=== PATIENT | female | born 1950 | race Caucasian/White ===

== ENCOUNTER → 2018-06-02 14:20 | Outpatient (CLI) | payer MEDICARE, BC, SELFPAY ==
--- NOTE | 2018-06-02 14:23 | DI.RAD.S_ITS ---
PROCEDURE: XR FOOT LT MIN 3V INDICATIONS: l foot pain TECHNIQUE: The 3 views of the foot were acquired. COMPARISON: None. FINDINGS: Bones: No fractures or dislocations. No suspicious bony lesions. Soft tissues: No tibiotalar joint effusion. Achilles tendon appears normal. IMPRESSION: Minimal degenerative osteophytic change at the interphalangeal joints, no trauma found. Mild osteoarthritis at the first MTP joint. Dictated by: Fidencio Campbell M.D. on 06/02/2018 at 14:42 Approved by: Fidencio Campbell M.D. on 06/02/2018 at 14:42
== END ==
PROVIDERS: Visit Provider Physician Assistant
DX: M19.072 Primary osteoarthritis, left ankle and foot (principal)
CPT/HCPCS: 73630

== ENCOUNTER → 2018-06-26 17:41 | Outpatient (CLI) | payer MEDICARE, BC, SELFPAY ==
--- NOTE | 2018-06-26 | DI.MRI.S_ITS ---
PROCEDURE: MRFOOT LT WO CON INDICATIONS: LEFT FOOT PAIN with attention to second and third metatarsal bones. TECHNIQUE: Noncontrast sagittal T1 spin echo and T2 fast spin echo with fat saturation, long-axis T1 spin echo and T2 fast spin echo with fat saturation, short-axis T1 spin echo and T2 fast spin echo with fat saturation through the forefoot. COMPARISON: [facility], CR, XR FOOT LT MIN 3V, 06/02/2018, 14:21. FINDINGS: Image quality: Excellent. Bones and joints: There is extensive edema throughout the second metatarsal shaft with fracture line and surrounding callus formation involving distal second metatarsal shaft. No other area of abnormal marrow signal is seen. Mild forefoot joint osteoarthritic changes are noted. The sesamoid bones appear in expected positions, without internal edema. No intraosseous lesions. Soft tissues: The visualized plantar foot muscles demonstrate normal signal and bulk. Visualized flexor and extensor tendons appear intact, without tenosynovitis. The distal insertions of the peroneus brevis and longus tendons appear intact. The principal Lisfranc ligament appears intact. No soft tissue ganglion cysts or bursal fluid collections. Sagittal images demonstrate no evidence for plantar plate tears. IMPRESSION: Findings consistent with stress fracture involving distal second metatarsal shaft. No significant displacement or angulation is seen at fracture site. Surrounding soft tissue edema and swelling is seen. No other fracture or dislocation. Forefoot tendons and ligaments are grossly intact. Dictated by: Silvino Connor M.D. on 06/27/2018 at 10:04 Approved by: Silvino Connor M.D. on 06/27/2018 at 10:16
== END ==
PROVIDERS: Visit Provider Podiatrist
DX: M79.672 Pain in left foot (principal); M84.375A Stress fracture, left foot, initial encounter for fracture
CPT/HCPCS: 73718

== ENCOUNTER → 2018-07-18 14:43 | Outpatient (CLI) | payer MEDICARE, BC, SELFPAY | PROVIDERS: Family Provider Podiatrist; PCP Internal Medicine; Visit Provider Internal Medicine | DX: M85.852 Other specified disorders of bone density and structure, left thigh (principal); M84.375D Stress fracture, left foot, subsequent encounter for fracture with routine healing; Z78.0 Asymptomatic menopausal state; Z82.62 Family history of osteoporosis; Z87.891 Personal history of nicotine dependence | CPT/HCPCS: 77080 ==

== ENCOUNTER → 2018-10-13 11:00 | Outpatient (CLI) | payer MEDICARE, BC, SELFPAY ==
--- NOTE | 2018-10-24 16:07 | PM.CARDMON.1 ---
Health Program Specialist Report Referral & Results Date Patient Seen: 10/13/18 Requesting provider: Mary Jo Sheikh Indication: Palpitations Duration of monitoring (days): 7 Diary information: There were 33 patient triggered events These events were associated with sinus rhythm, PACs PVCs and ventricular bigeminy Data: Minimum heart rate identified was 49 beats per minute at 05:59 on 10/20/2018 Maximum heart rate was 128 beats per minute at 16:45 on 10/18/2018 Less than 1% of identified beats were supraventricular ectopic in origin Approximately 1.1% of identified beats were ventricular ectopic in origin Patient had brief (less than 8 seconds) runs of ventricular bigeminy and trigeminy 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 Patient's symptoms are seemingly most likely associated with ventricular ectopic beats Clinical correlation suggested
== END ==
PROVIDERS: Family Provider Podiatrist; PCP Internal Medicine; Visit Provider Family Medicine
DX: R00.2 Palpitations (principal); R42 Dizziness and giddiness
CPT/HCPCS: 0296T; 0298T

== ENCOUNTER → 2019-08-27 10:29 | Outpatient (CLI) | payer MEDICARE, BC, SELFPAY ==
[2019-08-27 11:35] LABS: Hematocrit 44.3 % (36-46); Hemoglobin 15.4 g/dL (12.0-16.0); Mean Corpuscular HGB Conc 34.7 % (30-36); Mean Corpuscular Hemoglobin 32.5 PG (26-34); Mean Corpuscular Volume 93.6 fL (80-100); Platelet Count 217 X10^3/uL (150-400); Red Blood Cell Count 4.73 X10^6/uL (4.0-5.2); Red Cell Distribution Width 12.6 % (11.6-14.8); White Blood Cell Count 5.7 X10^3/uL (4.5-11.0)
[2019-08-27 12:01] LABS: Alanine Aminotransferase 22 IU/L (<35); Albumin 4.3 g/dL (3.5-5.0); Albumin Globulin Ratio 1.5 (1.0-2.8); Alkaline Phosphatase 102 U/L (38-126); Aspartate Aminotransferase 29 IU/L (14-36); BUN Creatinine Ratio 20.3 (6-22); Bilirubin Total 0.4 mg/dL (0.2-1.3); Blood Urea Nitrogen 14 mg/dL (7-17); Calcium 9.8 mg/dL (8.4-10.2); Carbon Dioxide 27 mmol/L (22-32); Chloride 105 mmol/L (98-107); Cholesterol 182 mg/dL (140-199); Estimated Glomerular Filt Rate > 60.0 mL/min (>60); Globulin 2.8 g/dL (1.7-4.1); Glucose 82 mg/dL (80-110); HDL Cholesterol 58 mg/dL (40-60); HEMOLYSIS < 15 (0-50); LDL Cholesterol Calculated 106 mg/dL (<100); Potassium 4.7 mmol/L (3.4-5.1); Sodium 137 mmol/L (137-145); Total Protein 7.1 g/dL (6.3-8.2); Triglycerides 89 mg/dL (35-150)
== END ==
PROVIDERS: Family Provider Podiatrist; PCP Nurse Practitioner Family; Referring Provider Nurse Practitioner Family; Visit Provider Nurse Practitioner Family
DX: Z13.6 Encounter for screening for cardiovascular disorders (principal); I10 Essential (primary) hypertension
CPT/HCPCS: 36415; 80053; 80061; 85027

== ENCOUNTER → 2020-01-04 11:29 | Outpatient (CLI) | payer MEDICARE, BC, SELFPAY ==
[2020-01-04 13:54] LABS: COVID19 -Nasal RAPID Negative (Negative)
== END ==
PROVIDERS: Family Provider Podiatrist; PCP Nurse Practitioner Family; Visit Provider Physician Assistant
DX: Z11.59 Encounter for screening for other viral diseases (principal)
CPT/HCPCS: 87635

== ENCOUNTER → 2020-01-07 10:14 | Outpatient (CLI) | payer MEDICARE, BC, SELFPAY ==
--- NOTE | 2020-01-07 | DI.NM.S_ITS ---
PROCEDURE: NM CHRIS PERF SPECT R&S PHARM Rest and pharmacological stress myocardial perfusion SPECT with gated imaging and ejection fraction RADIOPHARMACEUTICAL: 12.0 mCi Tc-99m tetrafosmin IV at rest and 26.7 mCi Tc-99m tetrafosmin IV at peak effect of pharmacological stress. [id number] was performed. INDICATIONS: Supraventricular tachycardia TECHNIQUE: Radiopharmaceutical was injected at peak stress test, and also at rest. SPECT images were obtained. SPECT myocardial perfusion images were displayed in short axis, horizontal long axis, and vertical long axis views. Gated images were reviewed using [employer] software. COMPARISON: None. CARDIAC STRESS: A pharmacologic stress test was performed under the supervision of an attending staff, using an infusion of lexiscan 0.4mg IV X1. Hemodynamic data: There is normal blood pressure and heart rate response to pharmacologic stress. Symptoms: The patient denied anginal chest pain. Aminophylline: 100mg IV X1 given. EKG: Resting ECG shows sinus rhythm with LBBB. ECG non-diagnostic with lexiscan. Rare PVCs. FINDINGS: Raw data: There is good myocardial uptake of radiotracer. No significant motion artifacts. Rnbh-gv-mpqqk ratio is 0.36 (normal is less than 0.38 for tetrafosmin tracer). Left ventricle function: Gated images demonstrate normal left ventricular wall thickening. No segmental wall motion abnormalities. No transient ischemic dilation; TID is 0.92 (normal less than 1.3). Left ventricle resting end diastolic volume is 96 mL. Left ventricle stress ejection fraction is 75%; normal range is above 45%. Myocardial perfusion: There is normal distribution of activity in the right and left ventricular myocardium. No fixed or reversible perfusion defects. IMPRESSION: Low risk, normal pharmaceutical nuclear stress test. 1) No perfusion evidence of ischemia or infarction. 2) Normal left ventricular size, wall motion, and systolic function (EF post stress 75%). 3) ECG non-diagnostic due to baseline LBBB. 4) No angina during the study. 5) No prior nuclear stress test available for comparison. Dictated by: Cullen Blackwell MD on 01/07/2020 at 17:11 Approved by: Cullen Blackwell MD on 01/07/2020 at 17:14
== END ==
PROVIDERS: Family Provider Podiatrist; PCP Nurse Practitioner Family; Referring Provider Nurse Practitioner; Visit Provider Nurse Practitioner
DX: I47.1 Supraventricular tachycardia (principal); I44.7 Left bundle-branch block, unspecified; I10 Essential (primary) hypertension; R00.2 Palpitations
CPT/HCPCS: 78452; 93017; A9502; J2785

== ENCOUNTER → 2020-01-29 10:53 | Outpatient (CLI) | payer MEDICARE, BC, SELFPAY ==
[2020-01-29 12:50] LABS: BUN Creatinine Ratio 17.8 (6-22); Blood Urea Nitrogen 13 mg/dL (7-17); Calcium 9.5 mg/dL (8.4-10.2); Carbon Dioxide 31 mmol/L (22-32); Chloride 105 mmol/L (98-107); Estimated Glomerular Filt Rate > 60.0 mL/min (>60); Glucose 85 mg/dL (80-110); HEMOLYSIS < 15 (0-50); Magnesium 2.3 mg/dL (1.6-2.3); Potassium 4.3 mmol/L (3.4-5.1); Sodium 137 mmol/L (137-145)
[2020-01-29 13:17] LABS: Thyroid Stimulating Hormone 2.02 uIU/mL (0.47-4.68)
[2020-02-01 14:08] LABS: Fecal Immunochemical Test Negative (Negative)
[2020-02-01 23:07] LABS: Metanephrine,Plasma 30.1 pg/mL (0.0-88.0)
[2020-02-05 13:16] LABS: Renin Activity 0.236 ng/mL/hr (0.167-5.380)
== END ==
PROVIDERS: Family Provider Podiatrist; PCP Nurse Practitioner Family; Referring Provider Nurse Practitioner; Visit Provider Nurse Practitioner
DX: I10 Essential (primary) hypertension (principal); Z12.11 Encounter for screening for malignant neoplasm of colon
CPT/HCPCS: 36415; 80048; 82088; 82274; 83735; 83835; 84244; 84443

== ENCOUNTER 2020-07-12 08:27 | Day surgery (SDC) | payer MEDICARE, BC, SELFPAY ==
[2020-07-12] MEDS: PROPARACAINE 0.5% OPHTH SOL 2 DROPS EYE-OP (09:48)
[2020-07-12] MEDS: CATARACT EYE COMPOUND (10 DROPS/SYRINGE) 3 DROPS EYE-OP (09:48)
[2020-07-12 09:53] VITALS: BP 160/91; PULSE 67; RESP 16; TEMP 36.2; O2SAT 100; BMI 28.8
[2020-07-12 09:59] LABS: COVID19 -Nasal RAPID Negative (Negative)
--- NOTE | 2020-07-12 10:24 | P.OP_ITS ---
Operative Date/Time/Diagnoses Pre-op diagnosis: Nuclear cataract right eye Procedure & Clinicians Procedure: Cataract Surgery Same procedure as scheduled: Yes Surgeon: Master Cage Anesthesia Type: MAC +/- and Sedation Operative Notes Procedure in detail: Patient brought to the operating suite. Tetracaine drops placed in the right eye. Marking instrument was used to brittney the vertical and horizontal meridians. Patient was prepped and draped in sterile manner. Wire lid speculum was placed in the eye. The marking instrument was used to brittney the 30 degree meridian. Betadine drops were placed on the eye. This was irrigated. Lidocaine jelly was placed on the eye. A paracentesis port was created with a side-port blade. 0.1 mL 1% preservative free lidocaine was injected into the anterior chamber. The anterior chamber was deepened with viscoelastic. 2.6 mm keratome was used to create a temporal clear corneal incision. Cystotome and Utrata forceps were used to create continuous tear capsulorrhexis. Balanced salt solution was used to hydro dissect the nucleus. The phacoemulsification handpiece was inserted and the nucleus was removed using the stop and chop technique. The irrigation aspiration handpiece was inserted and the remaining cortex was removed. Anterior chamber was deepened with viscoelastic. An Terry [id number] intraocular lens with a power of 23.0 was injected into the capsular bag. Irrigation aspiration handpiece was inserted and the remaining viscoelastic was removed. The lens was rotated to the 30 degree meridian. Incision was hydrated with balanced salt solution and found to be leak free with pressure with Weck- Ginny sponges. 0.1 mL Vigamox injected anterior chamber. 0.3 mL Kenalog 10 mg was injected subconjunctivally. Lid speculum was removed. The patient left the operating room in excellent condition. Complications: none Post-operative Condition: stable Disposition: same day surgery
--- NOTE | 2020-07-12 10:24 | PM.PREOP ---
Pre-operative Note Interval Note History & Physical reviewed/Exam performed by Physician: Yes Changes to H&P: No
[2020-07-12] MEDS: CHONDROIDTIN/SOD HYALURONATE 1.05 ML SYRINGE INTRAOCULA (10:37)
[2020-07-12] MEDS: MOXIFLOXACIN INJ 4 MG/0.8 ML VIAL 0.5 MG EYE-OP (10:37)
[2020-07-12] MEDS: LIDOCAINE 2% (GLYDO) 6 ML GEL TOP (10:37)
[2020-07-12] MEDS: TRIAMCINOLONE 50 MG/5 ML VIAL INJ (10:38)
[2020-07-12] MEDS: TETRACAINE 0.5% OPHTH DROPS 4 ML 2 DROPS EYE-OP (10:38)
[2020-07-12] MEDS: PHENYLEPHRINE/LIDOCAINE VIAL (OR) 0.2 ML EYE-OP (10:38)
[2020-07-12] MEDS: BALANCED SALT IRRIG SOLN NO.2 500 ML, EPINEPHrine 1 MG IRR (10:38)
[2020-07-12 11:07] VITALS: BP 144/86; PULSE 40; RESP 12; TEMP 35.8; O2SAT 97
== END 2020-07-12 11:14 | disposition home or self-care (01) ==
LOC: OR 08:36
PROVIDERS: Family Provider Podiatrist; PCP Nurse Practitioner Family; Referring Provider Ophthalmology; Visit Provider Ophthalmology
PROC: (CPT 66984; principal; 2020-07-12 10:45)
DX: H25.11 Age-related nuclear cataract, right eye (principal); F41.9 Anxiety disorder, unspecified; Z20.822 Contact with and (suspected) exposure to COVID-19
CPT/HCPCS: 66984; 87635; J0171; J2250; J3301; V2787

== ENCOUNTER 2020-09-06 15:41 | Emergency (ER) | payer MEDICARE, BC, SELFPAY ==
[2020-09-06 15:44] VITALS: BP 192/105; PULSE 67; RESP 18; TEMP 36.4; O2SAT 100; BMI 28.3
[2020-09-06 15:47] VITALS: BP 179/97
--- NOTE | 2020-09-06 15:51 | DI.CT.S_ITS ---
PROCEDURE: CT HEAD/BRAIN WO CON INDICATIONS: GLF, head injury TECHNIQUE: Noncontrast 4.5 mm thick angled axial sections acquired from the foramen magnum to the vertex, with coronal and sagittal reformats. For radiation dose reduction, the following was used: automated exposure control, adjustment of mA and/or kV according to patient size. COMPARISON: None. FINDINGS: Image quality: Excellent. CSF spaces: Basal cisterns are patent. No extra-axial fluid collections. Ventricles are normal in size and shape. Brain: No midline shift. No intracranial masses or hemorrhage. Chaves-white matter interface is normal. Skull and face: Calvarium and visualized facial bones are intact, without suspicious lesions. Right frontal scalp hematoma. Sinuses: Visualized sinuses and mastoids are clear. IMPRESSION: No acute intracranial abnormality. Right frontal scalp hematoma. Dictated by: Mika Dickens M.D. on 09/06/2020 at 16:07 Approved by: Mika Dickens M.D. on 09/06/2020 at 16:08
--- NOTE | 2020-09-06 17:48 | ED.HEATRA ---
HPI - Head Injury General Chief complaint: Head Injury Stated complaint: fell, hit head/face Time Seen by Provider: 09/06/20 17:44 Source: patient and family Mode of arrival: Ambulatory Limitations: no limitations History of Present Illness HPI Narrative: This is a 70-year-old female who comes to the emergency department with complaint of fall. Patient was walking when she tripped on the edge of the sidewalk. She fell and hit the right side of her face. Patient has a large hematoma. She has some abrasions. She states she did not get knocked out. She denies any headache currently but did have one initially. She denies loss of consciousness, stunned or altered mental status. Fall was witnessed by an individual who was helping her carry her groceries out from the local store. Patient does have some abrasions on her face. She is unsure of her tetanus status. She denies vision changes, no neck or back pain. No nausea, no vomiting, no other GI or urinary symptoms, no numbness tingling or weakness in her extremities. No chest pain or shortness of breath. Patient denies any other injuries besides some mild discomfort in her right buttock. Patient states she was able to ambulate afterwards. She states she does take a diuretic, chlorthalidone. Patient denies any other medical issues. She denies any anticoagulants. Related Data Home Medications Medication Instructions Recorded Confirmed ascorbic acid (vitamin C) 500 mg 500 mg PO DAILY #0 03/12/17 07/12/20 tablet multivitamin (Multiple Vitamins) 1 tab PO DAILY #0 03/12/17 07/12/20 vitamin E 100 unit capsule 100 unit PO DAILY #0 03/12/17 07/12/20 Deep Sleep 1 tab PO BEDTIME 05/05/19 calcium/magnesium 1 tab PO DAILY 05/05/19 07/12/20 cholecalciferol (vitamin D3) 50 2,000 unit PO DAILY 05/05/19 07/12/20 mcg (2,000 unit) tablet estradiol cream 1 applic TOPICAL DAILY 05/05/19 07/12/20 melatonin 3 mg capsule 3 mg PO BEDTIME PRN 05/05/19 07/12/20 progesterone cream 1 applic TOPICAL DAILY 05/05/19 07/12/20 chlorthalidone 25 mg tablet 12.5 mg PO DAILY 05/18/21 05/18/21 potassium chloride 10 mEq 10 meq PO DAILY 07/12/20 07/12/20 tablet,extended release Previous Rx's Medication Instructions Recorded [medical marijuana] PRN PRN #0 03/19/17 Allergies Allergy/AdvReac Type Severity Reaction Status Date / Time adhesive [ADHESIVE] Allergy Unknown Verified 09/06/20 15:44 morphine [MORPHINE] Allergy Unknown Verified 09/06/20 15:44 Review of Systems Review of Systems ROS Unobtainable: All systems reviewed & are unremarkable except as noted in HPI and below Patient History Medical History Fractures (~2015) Hot flashes Surgical History Anesthesia Broken ankle (~08/2002) Family History Father Cancer Mother Cancer Congestive heart failure Grandfather Stroke Grandmother Bleeding ulcer Social History household members: spouse Smoking Status: Former smoker Tobacco: How many years used: 30 second hand exposure: No alcohol intake: current substance use type: marijuana Smoking Status: Former smoker alcohol intake frequency: holidays/special occasions only Substance Use Type: marijuana Exam Narrative Exam Narrative: GEN: Patient appears in mild distress. HEAD: Patient has large hematoma over the right brow, he has some abrasion over the right forehead, right cheek, no raccoon/López sign. NECK: Nontender, painless range of motion, trachea midline Negative for Nexus criteria, there is no line tenderness, distracting injury, altered mental status, neuro deficit, recent EtOH. EYES: PERRLA, EOMI ENT: External inspection normal, trachea is midline, TM's are normal no hemotypanum, Nares are clear, no septal hematoma, no dental or oral injury, airway is normal and with normal occlusion, No bony tenderness RESP: Chest is nontender and has symmetric movement, no ecchymosis, breath sounds are normal no crackles, wheezes or rales CVS: Heart sounds are normal, no murmur noted, No JVD. ABG/GI: Nontender, soft, normal bowel sounds, no distention, no organomegaly. NEURO: Oriented AOx3, neuro is grossly intact, sensation and motor is normal all 4 extremities moving, cranial nerves II through XII are intact, GCS is 15 PSYCH: Normal mood and affect SKIN: See above, warm and dry, no crepitus and without decubitus BACK: No CVA tenderness, no vertebral tenderness, no step-off's, no crepitus EXT: Atraumatic, hips are nontender, no pedal edema, normal color and temperature, normal range of motion of extremities with normal tendon exam, 2+ pulses in all four extremities Initial Vital Signs Initial Vital Signs: Vital Signs Temperature 97.6 F 09/06/20 15:44 Pulse Rate 67 09/06/20 15:44 Respiratory Rate 18 09/06/20 15:44 Blood Pressure 192/105 H 09/06/20 15:44 Pulse Oximetry 100 09/06/20 15:44 Scores GCS Jadon coma scale eye opening: Spontaneous [place] coma scale verbal response: Orientated Jadon coma scale motor response: Obey commands Jadon coma scale total score: 15 Course Orders Ordered: ED Orders 09/06/20 15:51 CT head/brain wo con Stat Discontinued Medications Diphtheria/Tetanus/Acell Pertussis (Tet,Diph,Pertuss(Acell),Vac/Pf 0.5 Ml Syringe) 0.5 ml IM .ONCE ONE Stop: 09/06/20 18:06 Last Admin: 09/06/20 18:14 Dose: 0.5 ml Documented by: BUCK Vital Signs Vital signs: Vital Signs - 8 hr 09/06/20 15:44 09/06/20 15:47 09/06/20 18:32 Temperature 97.6 F Pulse Rate 67 78 Respiratory Rate 18 12 Blood Pressure 192/105 H 179/97 H 170/88 H Pulse Oximetry 100 100 MDM - Head Injury Imaging Data CT scan - head: Radiologist's Impression: [address] [id number] Scan ReportSigned Patient: Trisha Flores GMR#: [id number]: [id number]:[id number]/Sex: 70 / FDate of Service: 09/06/20Loc: EDAccession Number: [id number] Procedure: CT head/brain wo con Ordering Provider: Mank,Alicia C D.O. PROCEDURE: CT HEAD/BRAIN WO CON INDICATIONS: GLF, head injury TECHNIQUE: Noncontrast 4.5 mm thick angled axial sections acquired from the foramen magnum to the vertex, with coronal and sagittal reformats. For radiation dose reduction, the following was used: automated exposure control, adjustment of mA and/or kV according to patient size. COMPARISON: None. FINDINGS: Image quality: Excellent. CSF spaces: Basal cisterns are patent. No extra-axial fluid collections. Ventricles are normal in size and shape. Brain: No midline shift. No intracranial masses or hemorrhage. Chaves-white matter interface is normal. Skull and face: Calvarium and visualized facial bones are intact, without suspicious lesions. Right frontal scalp hematoma. Sinuses: Visualized sinuses and mastoids are clear. IMPRESSION: No acute intracranial abnormality. Right frontal scalp hematoma. Dictated by: Mika Dickens M.D. on 09/06/2020 at 16:07 Approved by: Mika Dickens M.D. on 09/06/2020 at 16:08 [facility] Narrative Medical decision making narrative: This is a 70-year-old female comes emergency department with ground level fall, witnessed mechanical fall with no loss of consciousness the patient has pretty significant hematoma over the right forehead. Patient have a mild headache. Head CT was ordered based on age. She is not anticoagulated. Head CT was negative, patient's GCS is 3. Cervical collar is clinically cleared. Tetanus was updated as patient was unsure of her last. Discharge Plan Departure Patient Disposition: Home Clinical Impression: Contusion of face, Abrasion of face, Head injury, Fall Instructions: DI for Closed Head Injury, DI for Abrasion Activity Restrictions/Additional Instructions: Follow-up with your physician for recheck in the next if you are not continuing to have improvement. Your tetanus has been updated. Wound Care: Keep wound(s) clean and dry. Wash daily with soap and water only. Do not use over the counter products (alcohol or peroxide)on the wounds unless instructed by a physician. You can use triple antibiotic ointment to affected area until healed. After healed I would recommend using sunscreen and protective clothing to prevent pigment changes. If wound condition worsens (increased/expanding redness, developing fluid blisters, or worsening pain), either contact your doctor for an urgent re-assessment , or return to the Emergency Department. Return to the Emergency Department for any new or worsening symptoms. Return if fever greater than 100.4 Fahrenheit, increased swelling, increasing pain or worsening symptoms such as increased discharge or spreading redness. Severe headaches, lightheadedness or passing out, new numbness, tingling or weakness, severe neck pain, persistent vomiting or other new or concerning symptoms. Prescriptions: No Action multivitamin [Multiple Vitamins] 1 EACH tablet 1 tab PO DAILY Qty: 0 RF: 0 vitamin E 100 UNIT capsule 100 unit PO DAILY Qty: 0 RF: 0 ascorbic acid (vitamin C) 500 MG tablet 500 mg PO DAILY Qty: 0 RF: 0 [medical marijuana] PRN PRNQty: 0 RF: 0 melatonin 3 mg capsule 3 mg PO BEDTIME PRN (Reason: Sleep) RF: 0 calcium/magnesium 1 tab PO DAILY RF: 0 cholecalciferol (vitamin D3) 50 mcg (2,000 unit) tablet 2,000 unit PO DAILY RF: 0 Deep Sleep 1 tab PO BEDTIME RF: 0 progesterone cream 1 applic topical DAILY RF: 0 estradiol cream 1 applic topical DAILY RF: 0 potassium chloride 10 mEq tablet extended release 10 meq PO DAILY RF: 0 chlorthalidone 25 mg tablet 12.5 mg PO DAILY RF: 0 Referrals: Marsha Yousif ARNP [Primary Care Provider] -
[2020-09-06] MEDS: TET,DIPH,PERTUSS(ACELL),VAC/PF 0.5 ML SYRINGE IM (18:14)
[2020-09-06 18:32] VITALS: BP 170/88; PULSE 78; RESP 12; O2SAT 100
== END 2020-09-06 18:36 | disposition home or self-care (01) ==
PROVIDERS: Emergency Provider Emergency Medicine; Family Provider Podiatrist; PCP Nurse Practitioner Family
DX: S00.83XA Contusion of other part of head, initial encounter (principal); S00.81XA Abrasion of other part of head, initial encounter; W19.XXXA Unspecified fall, initial encounter; Z23 Encounter for immunization
CPT/HCPCS: 70450; 90471; 99284; 90715

== ENCOUNTER → 2020-10-05 13:24 | Outpatient (CLI) | payer MEDICARE, BC, SELFPAY ==
[2020-10-05 15:00] LABS: COVID19 -Nasal RAPID Negative (Negative)
== END ==
PROVIDERS: Family Provider Podiatrist; PCP Nurse Practitioner Family; Referring Provider Student in an Organized Health Care Education/Training Program; Visit Provider Student in an Organized Health Care Education/Training Program
DX: R50.9 Fever, unspecified (principal); Z20.822 Contact with and (suspected) exposure to COVID-19
CPT/HCPCS: 87635

== ENCOUNTER → 2021-03-06 13:30 | Outpatient (CLI) | payer MEDICARE, BC, SELFPAY ==
[2021-03-06 14:45] LABS: Blood Urea Nitrogen 20 mg/dL (7-17); Calcium 9.9 mg/dL (8.4-10.2); Carbon Dioxide 30 mmol/L (22-32); Chloride 101 mmol/L (98-107); Estimated Glomerular Filt Rate > 60.0 mL/min (>60); Glucose 91 mg/dL (80-110); HEMOLYSIS < 15 (0-50); Potassium 4.6 mmol/L (3.4-5.1); Sodium 134 mmol/L (137-145)
== END ==
PROVIDERS: Family Provider Podiatrist; PCP Nurse Practitioner Family; Referring Provider Internal Medicine Cardiovascular Disease; Visit Provider Internal Medicine Cardiovascular Disease
DX: R00.2 Palpitations (principal); I10 Essential (primary) hypertension
CPT/HCPCS: 36415; 80048

== ENCOUNTER → 2021-06-05 14:39 | Outpatient (CLI) | payer MEDICARE, BC, SELFPAY ==
[2021-06-05 15:39] LABS: BUN Creatinine Ratio 17.3 (6-22); Blood Urea Nitrogen 13 mg/dL (7-17); Calcium 9.4 mg/dL (8.4-10.2); Carbon Dioxide 30 mmol/L (22-32); Chloride 98 mmol/L (98-107); Estimated Glomerular Filt Rate > 60.0 mL/min (>60); Glucose 93 mg/dL (80-110); HEMOLYSIS < 15 (0-50); Sodium 135 mmol/L (137-145)
[2021-06-06 13:35] LABS: Osmolality, Serum 278 mOsmol/kg (280-301)
== END ==
PROVIDERS: Family Provider Podiatrist; PCP Nurse Practitioner Family; Referring Provider Internal Medicine Cardiovascular Disease; Visit Provider Internal Medicine Cardiovascular Disease
DX: I10 Essential (primary) hypertension (principal); R00.2 Palpitations
CPT/HCPCS: 36415; 80048; 83930

== ENCOUNTER → 2021-07-05 14:35 | Outpatient (CLI) | payer MEDICARE, BC, SELFPAY ==
[2021-07-05 15:54] LABS: BUN Creatinine Ratio 26.5 (6-22); Blood Urea Nitrogen 22 mg/dL (7-17); Calcium 9.6 mg/dL (8.4-10.2); Carbon Dioxide 28 mmol/L (22-32); Chloride 103 mmol/L (98-107); Estimated Glomerular Filt Rate > 60 mL/min (>60); Glucose 92 mg/dL (80-110); HEMOLYSIS < 15 (0-50); Potassium 3.9 mmol/L (3.4-5.1); Sodium 139 mmol/L (137-145)
[2021-07-06 15:36] LABS: Osmolality, Serum 290 mOsmol/kg (280-301)
== END ==
PROVIDERS: Family Provider Podiatrist; PCP Nurse Practitioner Family; Referring Provider Internal Medicine Cardiovascular Disease; Visit Provider Internal Medicine Cardiovascular Disease
DX: E87.1 Hypo-osmolality and hyponatremia (principal)
CPT/HCPCS: 36415; 80048; 83930

== ENCOUNTER → 2021-12-22 09:08 | Outpatient (CLI) | payer MEDICARE, BC, SELFPAY ==
[2021-12-22 10:39] LABS: Alanine Aminotransferase 23 IU/L (<35); Albumin Globulin Ratio 1.4 (1.0-2.8); Alkaline Phosphatase 84 U/L (38-126); Aspartate Aminotransferase 23 IU/L (14-36); BUN Creatinine Ratio 17.9 (6-22); Bilirubin Total 0.4 mg/dL (0.2-1.3); Blood Urea Nitrogen 14 mg/dL (7-17); Calcium 9.5 mg/dL (8.4-10.2); Carbon Dioxide 28 mmol/L (22-32); Chloride 100 mmol/L (98-107); Cholesterol 200 mg/dL (140-199); Estimated Glomerular Filt Rate > 60 mL/min (>60); Globulin 2.9 g/dL (1.7-4.1); Glucose 99 mg/dL (80-110); HDL Cholesterol 65 mg/dL (40-60); HEMOLYSIS < 15 (0-50); LDL Cholesterol Calculated 122 mg/dL (<100); Potassium 3.9 mmol/L (3.4-5.1); Sodium 134 mmol/L (137-145); Total Protein 6.9 g/dL (6.3-8.2); Triglycerides 65 mg/dL (35-150)
== END ==
PROVIDERS: Family Provider Podiatrist; PCP Registered Nurse Diabetes Educator; Referring Provider Internal Medicine Cardiovascular Disease; Visit Provider Internal Medicine Cardiovascular Disease
DX: I10 Essential (primary) hypertension (principal)
CPT/HCPCS: 36415; 80053; 80061

== ENCOUNTER → 2022-04-16 09:43 | Outpatient (CLI) | payer MEDICARE, BC, SELFPAY | PROVIDERS: Family Provider Registered Nurse Diabetes Educator; PCP Registered Nurse Diabetes Educator; Referring Provider Registered Nurse Diabetes Educator; Visit Provider Registered Nurse Diabetes Educator | DX: M85.851 Other specified disorders of bone density and structure, right thigh (principal); Z13.820 Encounter for screening for osteoporosis; Z78.0 Asymptomatic menopausal state | CPT/HCPCS: 77080 ==

== ENCOUNTER → 2022-04-27 11:40 | Outpatient (CLI) | payer MEDICARE, BC, SELFPAY ==
[2022-04-27 13:03] LABS: Vitamin D 25 Hydroxy (D3) 48.9 ng/mL (30.0-100.0)
== END ==
PROVIDERS: Family Provider Registered Nurse Diabetes Educator; PCP Registered Nurse Diabetes Educator; Referring Provider Registered Nurse Diabetes Educator; Visit Provider Registered Nurse Diabetes Educator
DX: M85.80 Other specified disorders of bone density and structure, unspecified site (principal)
CPT/HCPCS: 36415; 82306

== ENCOUNTER 2022-05-28 14:30 | Outpatient (RCR) | payer MEDICARE, BC, SELFPAY ==
--- NOTE | 2022-05-16 16:08 | PT.OPPOC ---
Physical, Occupational & Speech Therapy At [facility] Current Diagnoses Other symptoms and signs involving the nervous system (05/16/22) Weakness (05/16/22) History of falling (05/16/22) Visit Care Team Role Provider Type TOBI Haywood Attending Provider [employer]er Blasting Family Provider Primary Care Provider Referring Provider Specialty: Medical Address: [address] [place] [address], [facility] Email: [email or web address] Plan Of Care PT-OP-T Assessment and Plan Start: 05/16/22 13:00 Freq: Status: Active Protocol: Document 05/16/22 13:01 ABRAHAM (Rec: 05/16/22 13:46 SAK [id number]) Physical Therapy Assessment Rehab Potential Rehabilitation Potential Good Evaluation Complexity Number of Personal Factors/Comorbidities 1-2 Number of Body Systems Impaired 1-2 Clinical Presentation at Evaluation Evolving Impairments Impairments Balance Goals Two Impairment weakness Impairment decreased LE strength Short Term Goal (STG) Patient to be instructed in individualized HEP for purposes of LE strengthening STG Duration 06/16/22 Skilled Nursing Goal (LTG) Patient to be independent with HEP and demonstrate LE strength 5/5 astrid to allow her to return to all prior activities safely LTG Duration 07/17/21 One Impairment balance dysfunction Impairment Narayan Balance score 46/56 Short Term Goal (STG) Improve Narayan balance score to 50/56 as measure of improved balance and safety STG Duration 06/16/22 Field Service Supervisor Goal (LTG) Improve Narayan balance score to at least 54/56 as mesure of improved balance and safety LTG Duration 07/16/22 Assessment Summary Assessment Patient presents to PT with function-limiting balance dysfunction of unknown origin, has had several falls. Balance impairment has led to decrease in activity level outside the house. Evaluation reveals LE weakness, difficulty with balance testing, lack of HEP to address balance. Feel she would benefit from PT to work on LE strengthening, balance retraining and help her return to prior high level of functional activity with decreased risk of falls. Plan of care was discussed with patient and she is in agreement. Physical Therapy Plan Frequency and Duration Frequency of Treatment 2x/Week Duration of treatment (weeks) 6 Plan of Care Start Date 05/16/22 Plan of Care End Date 07/16/22 Therapeutic Interventions Therapeutic Interventions Balance Training,Gait Training ,Home Exercise Program,Self- Care/Home Management, Therapeutic Activities, Therapeutic Exercises Next Visit Focus/Plan Next Note Type Treatment Note Next Visit Plan REview HEP, progress ther ex for balance retraining, gait training. Update HEP as indicated. Plan of Care Dates Plan of Care Start Date 05/16/22 Plan of Care End Date 07/16/22 Electronically Signed by: Fiordaliza Merritt, PT 05/21/22 0576 If you are in agreement with this Plan of Care, please return a signed and dated copy. I have reviewed this Plan of Care and certify that the skilled therapy services above are required to meet the patient?s needs. Physician Signature Date Printed Name and Credentials Clinical Instructor Signature Printed Name and Credentials
--- NOTE | 2022-05-16 16:08 | PT.OIE ---
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 Family Provider Primary Care Provider Referring Provider Specialty: Medical Address: [address] [place] [address] Email: [email or web address] Physical Therapy Initial Evaluation PT-OP-A Visit Information Start: 05/16/22 13:00 Freq: Status: Active Protocol: Document 05/16/22 13:01 [facility] (Rec: 05/16/22 13:46 [facility] [id number]) Out-Patient Physical Therapy Visit Information Visit Information Visit Type Initial Evaluation Visit Start Time 13:02 Visit Stop Time 13:45 Total Visit Minutes 43 Visit Number 1 Evaluation Information Evaluation Date 05/16/22 PT-OP-B Current Condition Start: 05/16/22 13:00 Freq: Status: Active Protocol: Document 05/16/22 13:01 [facility]AK (Rec: 05/16/22 13:46 [facility] [id number]) Current Condition History of Current Condition Onset Date a few years Current Complaints poor balance History of Current Condition Gradual worsening of balance, no known reason. States for a long time had difficulty with stairs both due to leg giving way as well as fear of heights. Usual exercise is 45 min on treadmill, planks, stretching. Holds on with both hands on treadmill 1.8-2. 0mph. . Used to go for long walks but 's back hurts a lot so they don't walk anymore. Has had a few falls. History fractured ankle right. States she tends to catch feet right greater than left. Denies numbness. Used to do yoga, able to do balance poses but not for years. Chronic back pain s/p fall on ice 25 years ago. Treatment Goals Patient/Caregiver Goals feel more stable, go for walks . Prior Functional Status Baseline Function- ADL's Independent Baseline Function- Mobility Independent Baseline Function- Gait no gait difficulty Baseline Function- Recreation/Hobbies no limitations Current Functional Impairments (Reported) Functional Limitations- ADL's Needs to sit or hold on to get dressed, do other ADL's and activities around the house Functional Limitations- Mobility/Gait Feels unsteady at times, has had falls Functional Limitations- Recreation/ has had falls Hobbies PT-OP-D Balance Start: 05/16/22 13:00 Freq: Status: Active Protocol: Document 05/16/22 13:01 [facility] (Rec: 05/21/22 16:06 [facility] [id number]) Narayan Balance Assessment Total Score Narayan Impairment Rating 1 to 19% Impaired (Score 45-55 ) PT-OP-G Mobility & Gait Start: 05/16/22 13:00 Freq: Status: Active Protocol: Document 05/16/22 13:01 [facility] (Rec: 05/21/22 16:07 [facility] [id number]) OP Gait Assessment Gait Gait Assistance Required: Independent Assistive Devices Assistive Device None Stair Climbing Evaluation Evaluation Level of Assist On Stairs Standby Assistance Devices Stair Climbing Assistive Devices Left Railing,Right Railing PT-OP-K Range of Motion Start: 05/16/22 13:00 Freq: Status: Active Protocol: Document 05/16/22 13:01 [facility] (Rec: 05/21/22 16:06 [facility] [id number]) Lumbar Spine Range of Motion Lumbar Spine Active Comments WFL Hip Goniometric Range of Motion Hip astrid Hip ROM WFL Yes Knee Goniometric Range of Motion Knee astrid Knee ROM WFL Yes Ankle and Foot Goniometric Range of Motion Ankle and Foot astrid Ankle/Foot ROM WFL Yes PT-OP-M Strength Start: 05/16/22 13:00 Freq: Status: Active Protocol: Document 05/16/22 13:01 [facility] (Rec: 05/16/22 13:46 [facility] [id number]) Hip Strength Hip Manual Muscle Testing astrid Flexion (L2) 4 Good Extension (S1) 4- Good- Abduction 4 Good External Rotation 4- Good- Internal Rotation 4 Good Knee Strength Knee Manual Muscle Testing astrid Flexion (S2) 4+ Good+ Extension (L3) 4+ Good+ Ankle/Foot Strength Ankle and Foot Manual Muscle Testing astrid Dorsiflexion (L4) 4+ Good+ Plantarflexion (S1) 4+ Good+ PT-OP-Q Treatments Start: 05/16/22 13:00 Freq: Status: Active Protocol: Document 05/16/22 13:01 [facility] (Rec: 05/16/22 13:46 [facility] [id number]) Self-Care/Home Management Treatment Education Patient Education Home Exercise Program PT-OP-T Assessment and Plan Start: 05/16/22 13:00 Freq: Status: Active Protocol: Document 05/16/22 13:01 [facility] (Rec: 05/16/22 13:46 [facility] [id number]) Physical Therapy Assessment Rehab Potential Rehabilitation Potential Good Evaluation Complexity Number of Personal Factors/Comorbidities 1-2 Number of Body Systems Impaired 1-2 Clinical Presentation at Evaluation Evolving Impairments Impairments Balance Goals Two Impairment weakness Impairment decreased LE strength Short Term Goal (STG) Patient to be instructed in individualized HEP for purposes of LE strengthening STG Duration 06/16/22 Tax Compliance Agent Goal (LTG) Patient to be independent with HEP and demonstrate LE strength 5/5 astrid to allow her to return to all prior activities safely LTG Duration 07/17/21 One Impairment balance dysfunction Impairment Narayan Balance score 46/56 Short Term Goal (STG) Improve Narayan balance score to 50/56 as measure of improved balance and safety STG Duration 06/16/22 Mcc Goal (LTG) Improve Narayan balance score to at least 54/56 as mesure of improved balance and safety LTG Duration 07/16/22 Assessment Summary Assessment Patient presents to PT with function-limiting balance dysfunction of unknown origin, has had several falls. Balance impairment has led to decrease in activity level outside the house. Evaluation reveals LE weakness, difficulty with balance testing, lack of HEP to address balance. Feel she would benefit from PT to work on LE strengthening, balance retraining and help her return to prior high level of functional activity with decreased risk of falls. Plan of care was discussed with patient and she is in agreement. Physical Therapy Plan Frequency and Duration Frequency of Treatment 2x/Week Duration of treatment (weeks) 6 Plan of Care Start Date 05/16/22 Plan of Care End Date 07/16/22 Therapeutic Interventions Therapeutic Interventions Balance Training,Gait Training ,Home Exercise Program,Self- Care/Home Management, Therapeutic Activities, Therapeutic Exercises Next Visit Focus/Plan Next Note Type Treatment Note Next Visit Plan REview HEP, progress ther ex for balance retraining, gait training. Update HEP as indicated.
--- NOTE | 2022-05-28 15:16 | PT.OTN ---
Current Diagnoses Other symptoms and signs involving the nervous system (05/28/22) Weakness (05/28/22) History of falling (05/28/22) Physical Therapy Treatment Note PT-OP-A Visit Information Start: 05/16/22 13:00 Freq: Status: Active Protocol: Document 05/28/22 14:31 [facility] (Rec: 05/28/22 15:16 [facility] [id number]) Out-Patient Physical Therapy Visit Information Visit Information Visit Type Treatment Note Visit Start Time 14:32 Visit Stop Time 15:13 Total Visit Minutes 41 Visit Number 2 Evaluation Information Evaluation Date 05/16/22 PT-OP-B Current Condition Start: 05/16/22 13:00 Freq: Status: Active Protocol: Document 05/28/22 14:31 [facility] (Rec: 05/28/22 15:16 [facility] [id number]) Current Condition History of Current Condition Onset Date a few years Current Complaints poor balance History of Current Condition Gradual worsening of balance, no known reason. States for a long time had difficulty with stairs both due to leg giving way as well as fear of heights. Usual exercise is 45 min on treadmill, planks, stretching. Holds on with both hands on treadmill 1.8-2. 0mph. . Used to go for long walks but 's back hurts a lot so they don't walk anymore. Has had a few falls. History fractured ankle right. States she tends to catch feet right greater than left. Denies numbness. Used to do yoga, able to do balance poses but not for years. Chronic back pain s/p fall on ice 25 years ago. PT-OP-C Subjective Start: 05/16/22 13:00 Freq: Status: Active Protocol: Document 05/28/22 14:31 [facility] (Rec: 05/28/22 15:16 [facility] [id number]) OP-PT Subjective Patient Comments Patient Comments No new c/o, did HEP a couple times per day PT-OP-D Balance Start: 05/16/22 13:00 Freq: Status: Active Protocol: Document 05/16/22 13:01 [facility] (Rec: 05/21/22 16:06 [facility] [id number]) Narayan Balance Assessment Total Score Narayan Impairment Rating 1 to 19% Impaired (Score 45-55 ) PT-OP-G Mobility & Gait Start: 05/16/22 13:00 Freq: Status: Active Protocol: Document 05/16/22 13:01 [facility] (Rec: 05/21/22 16:07 [facility] [id number]) OP Gait Assessment Gait Gait Assistance Required: Independent Assistive Devices Assistive Device None Stair Climbing Evaluation Evaluation Level of Assist On Stairs Standby Assistance Devices Stair Climbing Assistive Devices Left Railing,Right Railing PT-OP-K Range of Motion Start: 05/16/22 13:00 Freq: Status: Active Protocol: Document 05/16/22 13:01 [facility] (Rec: 05/21/22 16:06 [facility] [id number]) Lumbar Spine Range of Motion Lumbar Spine Active Comments WFL Hip Goniometric Range of Motion Hip astrid Hip ROM WFL Yes Knee Goniometric Range of Motion Knee astrid Knee ROM WFL Yes Ankle and Foot Goniometric Range of Motion Ankle and Foot astrid Ankle/Foot ROM WFL Yes PT-OP-M Strength Start: 05/16/22 13:00 Freq: Status: Active Protocol: Document 05/16/22 13:01 [facility] (Rec: 05/16/22 13:46 [facility] [id number]) Hip Strength Hip Manual Muscle Testing astrid Flexion (L2) 4 Good Extension (S1) 4- Good- Abduction 4 Good External Rotation 4- Good- Internal Rotation 4 Good Knee Strength Knee Manual Muscle Testing astrid Flexion (S2) 4+ Good+ Extension (L3) 4+ Good+ Ankle/Foot Strength Ankle and Foot Manual Muscle Testing astrid Dorsiflexion (L4) 4+ Good+ Plantarflexion (S1) 4+ Good+ PT-OP-Q Treatments Start: 05/16/22 13:00 Freq: Status: Active Protocol: Document 05/28/22 14:31 [facility] (Rec: 05/28/22 15:16 [facility] [id number]) Cardio Equipment Recumbent Stepper (Sci-Fit) Duration (Minutes) 5 Resistance 1 Seat Position 10 Gym Equipment Shuttle Recovery Unilateral Squats Resistance 50 R, 50 L Reps/Time 10x2 (harder on left) Bilateral Squats Resistance 62 Reps/Time 10x2 Shuttle Balance chains red Details bal and wt shift fwd/bck Neuro Re-Education Treatment Balance Activities tandem gait Reps/Duration 10 ft x 2 Comments CGA hurdles Details fwd, side Equipment bars Comments min use of UE's on bar tiltboard Details bal and wt shift f/b, side Equipment tiltboard Comments EO, EC SLS Surface firm, blue foam Equipment bar Reps/Duration 3x ea heel raise,toe raise Equipment railing Reps/Duration 10x ea obstacle course Details foam: moreland, blue, green, black Equipment parallel bars Comments CGA Self-Care/Home Management Treatment Education Patient Education Home Exercise Program Other Education add heel raise, toe raise, tandem gait to HEP PT-OP-T Assessment and Plan Start: 05/16/22 13:00 Freq: Status: Active Protocol: Document 05/28/22 14:31 [facility] (Rec: 05/28/22 15:16 [facility] [id number]) Physical Therapy Assessment Goals Two Impairment weakness Impairment decreased LE strength Short Term Goal (STG) Patient to be instructed in individualized HEP for purposes of LE strengthening STG Duration 06/16/22 Care Home Goal (LTG) Patient to be independent with HEP and demonstrate LE strength 5/5 astrid to allow her to return to all prior activities safely LTG Duration 07/17/21 One Impairment balance dysfunction Impairment Narayan Balance score 46/56 Short Term Goal (STG) Improve Narayan balance score to 50/56 as measure of improved balance and safety STG Duration 06/16/22 Care Home Goal (LTG) Improve Narayan balance score to at least 54/56 as mesure of improved balance and safety LTG Duration 07/16/22 Assessment Summary Assessment Good compliance and progress with HEP, able to progress strengthening and balance exercises. Physical Therapy Plan Frequency and Duration Frequency of Treatment 2x/Week Duration of treatment (weeks) 6 Plan of Care Start Date 05/16/22 Plan of Care End Date 07/16/22 Therapeutic Interventions Therapeutic Interventions Balance Training,Gait Training ,Home Exercise Program,Self- Care/Home Management, Therapeutic Activities, Therapeutic Exercises Next Visit Focus/Plan Next Note Type Treatment Note Next Visit Plan Progress ther ex for balance retraining, gait training. Update HEP HO as indicated. Add chair squats firm, possibly blue foam under feet
--- NOTE | 2022-06-05 08:06 | PT-OP ANOTE ---
cancelled via [employer]
--- NOTE | 2022-07-03 11:05 | PT.OPDS ---
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 Visit Number Visit Number 2 Discharge Summary PT-OP-B Current Condition Start: 05/16/22 13:00 Freq: Status: Active Protocol: Document 05/28/22 14:31 [facility] (Rec: 05/28/22 15:16 [facility] [id number]) Current Condition History of Current Condition Onset Date a few years Current Complaints poor balance History of Current Condition Gradual worsening of balance, no known reason. States for a long time had difficulty with stairs both due to leg giving way as well as fear of heights. Usual exercise is 45 min on treadmill, planks, stretching. Holds on with both hands on treadmill 1.8-2. 0mph. . Used to go for long walks but 's back hurts a lot so they don't walk anymore. Has had a few falls. History fractured ankle right. States she tends to catch feet right greater than left. Denies numbness. Used to do yoga, able to do balance poses but not for years. Chronic back pain s/p fall on ice 25 years ago. PT-OP-C Subjective Start: 05/16/22 13:00 Freq: Status: Active Protocol: Document 05/28/22 14:31 [facility] (Rec: 05/28/22 15:16 [facility] [id number]) OP-PT Subjective Patient Comments Patient Comments No new c/o, did HEP a couple times per day PT-OP-D Balance Start: 05/16/22 13:00 Freq: Status: Active Protocol: Document 05/16/22 13:01 [facility] (Rec: 05/21/22 16:06 [facility] [id number]) Narayan Balance Assessment Total Score Narayan Impairment Rating 1 to 19% Impaired (Score 45-55 ) PT-OP-G Mobility & Gait Start: 05/16/22 13:00 Freq: Status: Active Protocol: Document 05/16/22 13:01 [facility] (Rec: 05/21/22 16:07 [facility] [id number]) OP Gait Assessment Gait Gait Assistance Required: Independent Assistive Devices Assistive Device None Stair Climbing Evaluation Evaluation Level of Assist On Stairs Standby Assistance Devices Stair Climbing Assistive Devices Left Railing,Right Railing PT-OP-K Range of Motion Start: 05/16/22 13:00 Freq: Status: Active Protocol: Document 05/16/22 13:01 [facility] (Rec: 05/21/22 16:06 [facility] [id number]) Lumbar Spine Range of Motion Lumbar Spine Active Comments WFL Hip Goniometric Range of Motion Hip astrid Hip ROM WFL Yes Knee Goniometric Range of Motion Knee astrid Knee ROM WFL Yes Ankle and Foot Goniometric Range of Motion Ankle and Foot astrid Ankle/Foot ROM WFL Yes PT-OP-M Strength Start: 05/16/22 13:00 Freq: Status: Active Protocol: Document 05/16/22 13:01 [facility] (Rec: 05/16/22 13:46 [facility] [id number]) Hip Strength Hip Manual Muscle Testing astrid Flexion (L2) 4 Good Extension (S1) 4- Good- Abduction 4 Good External Rotation 4- Good- Internal Rotation 4 Good Knee Strength Knee Manual Muscle Testing astrid Flexion (S2) 4+ Good+ Extension (L3) 4+ Good+ Ankle/Foot Strength Ankle and Foot Manual Muscle Testing astrid Dorsiflexion (L4) 4+ Good+ Plantarflexion (S1) 4+ Good+ PT-OP-T Assessment and Plan Start: 05/16/22 13:00 Freq: Status: Active Protocol: Document 07/03/22 11:04 [facility] (Rec: 07/03/22 11:04 [facility] [id number]) Physical Therapy Plan Discharge Physical Therapy Discharge Reasons Patient Request Discharge Comments Patient cancelled remaining appointments. Discharged from PT
== END 2022-07-04 15:11 | disposition home or self-care (01) ==
LOC: PHYS 14:30
PROVIDERS: Family Provider Registered Nurse Diabetes Educator; PCP Registered Nurse Diabetes Educator; Referring Provider Registered Nurse Diabetes Educator; Visit Provider Registered Nurse Diabetes Educator
DX: R29.818 Other symptoms and signs involving the nervous system (principal); Z91.81 History of falling; R53.1 Weakness
CPT/HCPCS: 97110; 97112; 97161; 97535

== ENCOUNTER → 2024-05-06 14:43 | Outpatient (CLI) | payer MEDICARE, BC, SELFPAY ==
--- NOTE | 2024-05-06 14:44 | DI.RAD.S_ITS ---
PROCEDURE: XR DEXA AXIAL SKELETON INDICATIONS: osteopenia COMPARISON: [facility], , XR DEXA AXIAL SKELETON, 04/16/2022, 10:08. FINDINGS: Lumbar Spine: Bone mineral density 1.228 g/cm2, T score 1.2, increased by 4.6 percent. Left Femoral Neck: Bone mineral density 0.704 g/cm2, T score -1.3. Left Hip: Bone mineral density 0.773 g/cm2, T score -1.4, no significant change. Fracture Risk Calculation (when applicable): 10-year fracture risk of a major osteoporotic fracture 16 percent and of a hip fracture 2.7 percent. (T score greater or equal to -1.0 to: NORMAL) (T score from -1.1 to -2.4: OSTEOPENIA) (T score less than or equal to -2.5: OSTEOPOROSIS) IMPRESSION: Low bone mineral density (osteopenia) by WHO classification. Follow-up guidelines as follows: Osteoporosis: Consider a repeat DEXA and Vertebral Fracture Assessment (VFA) exam in 2 years or sooner if medically necessary, to reassess this patient's status. Osteopenia: Consider a repeat DEXA in 2-3 years to reassess this patient's status, or if there is a new clinical indication. Normal: Consider a repeat DEXA in 5 years or sooner, or if there is a new clinical indication. All treatment decisions require clinical judgment and consideration of individual patient factors, including patient preferences, comorbidities, previous drug use, risk factors not captured in the FRAX model (e.g., frailty, falls, vitamin D deficiency, increased bone turnover, interval significant decline in bone density ) and possible under- or over-estimation of fracture risk by FRAX. In addition, the NOF Guide recommends that FDA-approved medical therapies be considered in postmenopausal women and men age >= 50 years with a: * Hip or vertebral (clinical or morphometric) fracture * T-score of <=-2.5 at the spine or hip * Ten-year fracture probability by FRAX of >= 3% for hip fracture or >=20% for major osteoporotic fracture. Dictated by: Yared Soriano M.D. on 05/06/2024 at 16:09 Approved by: Yared Soriano M.D. on 05/06/2024 at 16:10
== END ==
PROVIDERS: Family Provider Registered Nurse Diabetes Educator; PCP Registered Nurse Diabetes Educator; Referring Provider Registered Nurse Diabetes Educator; Visit Provider Registered Nurse Diabetes Educator
DX: M85.89 Other specified disorders of bone density and structure, multiple sites (principal)
CPT/HCPCS: 77080

== ENCOUNTER → 2024-05-21 14:53 | Outpatient (CLI) | payer MEDICARE, BC, SELFPAY ==
--- NOTE | 2024-05-21 14:54 | DI.ECHO.S_ITS ---
[facility]+ [facility] : : [id number] : [place] : : [address] : : Phone: [phone] Echocardiogram Report + + :Name: FREDDIE KOVACS Study Date: 05/21/2024 Height: 64 in : :[facility] ReadingLocation: Weight: 159 lb : : Gender: Female BSA: 1.8 m2 : :: 1950 Age: 73 yrs BP: 172/101 mmHg: :Reason For Study: NONRHEUMATIC TRICUSPID VALVE INSUFFICIENCY : :Ordering Physician: MATT, : :LE Performed By: Mika Reed : :Referring: LE GUTIERREZ : + + Interpretation Summary The left ventricle is normal in size. Left ventricular ejection fraction is estimated to be 50 +/- 5%. Previously LVEF 55 to 60%. Septal motion is consistent with conduction abnormality. MV E/A: 0.83 Med Peak E' Mervin: 5.6 cm/sec E/E' med: 16.3 The right ventricle is normal in size and function. There is mild aortic regurgitation. There is moderate tricuspid regurgitation. Previously mild TR. The right ventricular systolic pressure is estimated to be at least 31 mmHg based on an estimated right atrial pressure of 3 mm Hg. BP: 172/101 mmHg Procedure: A two-dimensional transthoracic echocardiogram with color flow and Doppler was performed. The study quality was technically good. Comparison is made with the echocardiogram of 11/18/2019. The patient was in normal sinus rhythm during the exam. The patient had a bundle branch block rhythm during the exam. Left Ventricle: The left ventricle is normal in size. There is normal left ventricular wall thickness. There is no ventricular septal defect visualized. Left ventricular ejection fraction is estimated to be 50 +/- 5%. Septal motion is consistent with conduction abnormality. MV E/A: 0.83 Med Peak E' Mervin: 5.6 cm/sec E/E' med: 16.3. Right Ventricle: The right ventricle is normal in size and function. Atria: The left atrium is mildly dilated. The left atrium has mildly increased in size since the prior echo exam. Right atrial size is normal. There is no Doppler evidence for an interatrial shunt. Mitral Valve: There is mild to moderate mitral annular calcification. The mitral valve leaflets appear mildly thickened, but open well. There is trace mitral regurgitation. Aortic Valve: The aortic valve is trileaflet. The aortic valve opens well. The aortic valve is slightly calcified. There is mild aortic regurgitation. Tricuspid Valve: The tricuspid valve leaflets are thin and pliable. There is moderate tricuspid regurgitation. The right ventricular systolic pressure is estimated to be at least 31 mmHg based on an estimated right atrial pressure of 3 mm Hg. Pulmonic Valve: The pulmonic valve leaflets are thin and pliable; valve motion is normal. There is mild pulmonic regurgitation. Great Vessels: The aortic root is normal size. The dimensions of the ascending aorta are normal. The pulmonary artery is normal size. The IVC is of normal diameter and collapses greater than 50% with a sniff. This suggests a low right atrial pressure of 3 mm Hg. Pericardium/ Pleura There is no pericardial effusion. There is no pleural effusion. MMode/2D Measurements & Calculations LVIDd: 4.5 cm LVOT diam: 1.9 cm LVIDs: 3.4 cm Ao root diam: 3.1 cm FS: 26.1 % asc Aorta Diam: 3.3 cm EPSS: 0.58 cm IVSd: 0.96 cm LVPWd: 0.97 cm LV horton. diameter/BSA (cm/m^2): 2.6 LV sys. diameter/BSA (cm/m^2): 1.9 LA A2 area: 21.0 cm2 RA long axis: 4.7 cm LA A4 area: 18.3 cm2 RA area: 14.0 cm2 LA length (vol): 5.3 cm RA vol: 35.4 ml LA vol: 61.7 ml RA : 20.0 ml/m2 LA vol index: 34.8 ml/m2 IVC diam: 1.4 cm RVD1 (basal): 3.8 cm RVD2 (mid): 2.4 cm TAPSE: 2.6 cm Doppler Measurements & Calculations Ao V2 max: 167.9 cm/sec LVOT Max Mervin: 124.7 cm/sec Ao V2 mean: 118.4 cm/sec LV V1 max P.2 mmHg Ao max P.3 mmHg LV V1 VTI: 26.9 cm Ao mean P.3 mmHg VAHE(I,D): 2.1 cm2 Ao V2 VTI: 38.3 cm VAHE(V,D): 2.2 cm2 sev ratio: 0.70 VAHE indexed to BSA (cm^2/m^2): 1.2 MV E max mervin: 90.4 cm/sec TR max mervin: 265.8 cm/sec MV A max mervin: 108.8 cm/sec TR max P.3 mmHg MV E/A: 0.83 PA V2 max: 69.2 cm/sec Med Peak E' Mervin: 5.6 cm/sec PA V2 mean: 45.5 cm/sec E/E' med: 16.3 PA mean P.93 mmHg Lat Peak E' Mervin: 7.5 cm/sec PA pr(Accel): 27.6 mmHg E/E' lat: 12.1 E/e' average: 14.2 MV dec time: 0.27 sec SV(LVOT): 79.0 ml Reading Physician:06:57 PM
== END ==
PROVIDERS: Family Provider Registered Nurse Diabetes Educator; PCP Registered Nurse Diabetes Educator; Referring Provider Internal Medicine Cardiovascular Disease; Visit Provider Internal Medicine Cardiovascular Disease
DX: I08.3 Combined rheumatic disorders of mitral, aortic and tricuspid valves (principal)
CPT/HCPCS: 93306

== ENCOUNTER → 2024-07-27 06:42 | Outpatient (CLI) | payer MEDICARE, BC, SELFPAY ==
[2024-07-27 07:55] LABS: Cholesterol 200 mg/dL (140-199); HDL Cholesterol 73 mg/dL (40-60); LDL Cholesterol Calculated 109 mg/dL (<100); Triglycerides 88 mg/dL (35-150)
[2024-07-27 07:58] LABS: Alanine Aminotransferase 26 IU/L (<35); Albumin 4.2 g/dL (3.5-5.0); Albumin Globulin Ratio 1.6 (1.0-2.8); Alkaline Phosphatase 94 U/L (38-126); Aspartate Aminotransferase 33 IU/L (14-36); BUN Creatinine Ratio 17.1 (6-22); Bilirubin Total 0.5 mg/dL (0.2-1.3); Blood Urea Nitrogen 13 mg/dL (7-17); Calcium 10.2 mg/dL (8.4-10.2); Carbon Dioxide 25 mmol/L (22-32); Chloride 101 mmol/L (98-107); Estimated Glomerular Filt Rate > 60 mL/min (>60); Globulin 2.6 g/dL (1.7-4.1); Glucose 95 mg/dL (70-99); HEMOLYSIS < 15 (0-50); Potassium 4.2 mmol/L (3.4-5.1); Sodium 135 mmol/L (137-145); Total Protein 6.8 g/dL (6.3-8.2)
[2024-07-27 08:11] LABS: Vitamin D 25 Hydroxy (D3) 69.3 ng/mL (30.0-100.0)
[2024-07-27 08:24] LABS: Thyroid Stimulating Hormone 1.32 uIU/mL (0.47-4.68)
== END ==
LOC: LAB 06:45
PROVIDERS: Family Provider Registered Nurse Diabetes Educator; PCP Registered Nurse Diabetes Educator; Referring Provider Internal Medicine Cardiovascular Disease; Visit Provider Internal Medicine Cardiovascular Disease
DX: M85.80 Other specified disorders of bone density and structure, unspecified site (principal); I10 Essential (primary) hypertension; Z87.312 Personal history of (healed) stress fracture
CPT/HCPCS: 36415; 80053; 80061; 82306; 83735; 84443